=== PATIENT | male | born 2000 | race Caucasian/White ===

== ENCOUNTER 2020-12-13 08:51 | Inpatient (IN) | payer OTHER ==
[~2020-12-13] VITALS: Ht 185.4 cm; Wt 72.5 kg
--- NOTE | 2020-12-13 09:15 | NUR ---
and RN at bedside for assessments.
--- NOTE | 2020-12-13 09:20 | NUR ---
Repeat EKG being performed and pt placed on full bedside monitor. PCXR waiting outside room for film.
[2020-12-13] MEDS ORDERED: PLEASE ENTER ALLERGIES MC SCH (09:30)
[2020-12-13] MEDS ORDERED: ASPIRIN 81 MG TABLET CHEW PO ONE (09:30)
--- NOTE | 2020-12-13 09:30 | NUR ---
loom technician at bedside for draw.
[2020-12-13 09:31] LABS: BASOPHILS % (AUTO) 1 % (0-1); EOSINOPHILS % (AUTO) 2 % (1-7); LYMPHOCYTES % (AUTO) 17 % (22-44); MEAN CORPUSCULAR HEMOGLOBIN 31.7 pg (27.5-34.5); MEAN CORPUSCULAR HGB CONC 34.2 g/dL (33.2-36.2); MEAN PLATELET VOLUME 8.6 fL (7.4-10.4); MONOCYTES % (AUTO) 17 % (2-9); NEUTROPHILS % (AUTO) 63 % (42-75); PLATELET COUNT 161 x10^3/uL (130-400); RED BLOOD COUNT 5.54 x10^6/uL (4.38-5.82); RED CELL DISTRIBUTION WIDTH 13.2 % (9.4-14.8)
[2020-12-13] MEDS ORDERED: ASPIRIN 81 MG TABLET CHEW ONE (09:34)
--- NOTE | 2020-12-13 09:38 | NUR ---
Pt given baby ASA as ordered with small amount of water. Call light in reach and pt watching TV for diversion.
[2020-12-13 09:45] LABS: ALANINE AMINOTRANSFERASE 42 U/L (12-78); ALBUMIN 4.3 g/dL (3.4-5.0); ANION GAP 7 mmol/L (5-15); CHLORIDE 102 mmol/L (98-107); CREATININE 0.95 mg/dL (0.7-1.3)
[2020-12-13 09:47] LABS: MD SCAN
[2020-12-13 09:49] LABS: ALKALINE PHOSPHATASE 61 U/L (45-117); BILIRUBIN,TOTAL 1.1 mg/dL (0.2-1.0)
--- NOTE | 2020-12-13 10:28 | NUR ---
Cadiologist at bedside for exam. Task RN preparing to start IV and do rapid Covid swab as ordered.
[2020-12-13] MEDS ORDERED: SODIUM CHLORIDE FLUSH 10ML SYR IVF ONE (10:30)
[2020-12-13] MEDS ORDERED: MORPHINE SULFATE 4 MG/ML, 1ML IVPush ONE (10:30)
--- NOTE | 2020-12-13 10:50 | NUR ---
TASK RN: PIV STARTED, VS UPDATED. COVID SWAB OBTAINED AND WALKED TO LAB.
[2020-12-13] MEDS ORDERED: ATORVASTATIN 80 MG TABLET ONE (11:17)
[2020-12-13] MEDS ORDERED: HEPARIN 5,000 UNITS/ML, 1ML ONE ×2 (11:17→11:32)
[2020-12-13] MEDS ORDERED: HEPARIN 25,000 UNITS/250ML PMX 250 ML ONE (11:18)
--- NOTE | 2020-12-13 11:35 | NUR ---
HEPARIN PULLED FOR BOLUS AND START OF GTT BUT NOT YET CONFIRMED BY PHARMACY SO UNABLE TO SCAN/START MEDICATION. SECOND RN AT BEDSIDE TO WITNESS START CONFIRMS THAT PHARMACY HAS NOT YET CONFIRMED ORDERS TO BE ABLE TO START NOW. HOSPITALIST AT BEDSIDE FOR EXAM NOW.
--- NOTE | 2020-12-13 11:42 | NUR ---
Report called to KRYSTIN Villasenor working with KRYSTIN Henderson and room not yet cleaned. Jacklyn asked to call ER throughput RN as soon as bed is ready for transfer. Hospitalist exam still in progress. Pharmacy to be called about Heparin gtt now and UA sample obtained and sent.
--- NOTE | 2020-12-13 12:13 | NUR ---
Heparin bolus given and gtt started via pump. Confirmed with second RN. Awaiting transport to floor now.
[2020-12-13 12:22] LABS: AMPHETAMINE SCREEN, URINE Negative (Negative); BARBITURATE SCREEN, URINE Negative (Negative); BENZODIAZEPINE SCREEN, URINE Negative (Negative); CANNABINOID SCREEN, URINE Positive (Negative); COCAINE SCREEN, URINE Negative (Negative); METHADONE SCREEN, URINE Negative (Negative); OPIATE SCREEN, URINE Negative (Negative)
[2020-12-13 12:30] LABS: HCT (SEDRATE) 52.3 % (39.2-51.8)
[2020-12-13] MEDS ORDERED: HEPARIN 25,000 UNITS/250ML PMX 250 ML IV PRN (12:30)
[2020-12-13] MEDS ORDERED: HEPARIN 5,000 UNITS/ML, 1ML IV PRN (12:30)
[2020-12-13] MEDS ORDERED: HEPARIN 5,000 UNITS/ML, 1ML IV ONE (12:30)
[2020-12-13] MEDS ORDERED: ONDANSETRON 2MG/ML, 2ML IVPush PRN (13:00)
[2020-12-13] MEDS ORDERED: VERAPAMIL 2.5 MG/ML, 2ML ONE (14:05)
[2020-12-13] MEDS ORDERED: MIDAZOLAM 1 MG/ML, 5ML ONE (14:05)
[2020-12-13] MEDS ORDERED: FENTANYL PF 100 MCG/2ML ONE (14:05)
[2020-12-13] MEDS ORDERED: HEPARIN 1,000 UNITS/ML, 10ML ONE (14:06)
[2020-12-13] MEDS ORDERED: LIDOCAINE-MPF 1%, 5ML ONE (14:06)
[2020-12-13] MEDS ORDERED: DIPHENHYDRAMINE 50 MG/ML, 1ML ONE (14:34)
[2020-12-13] MEDS: SODIUM CHLORIDE 0.9% 1,000 ML IV SCH ×3 (15:00→23:00)
[2020-12-13 15:22] VITALS: BP 98/64
[2020-12-13] MEDS ORDERED: INDOMETHACIN 25 MG CAPSULE PO PRN (17:00)
[2020-12-13] MEDS ORDERED: OMNIPAQUE 350 MG/ML, 100ML BOTTLE ONE (18:00)
[2020-12-13 20:08] VITALS: BP 107/71
[2020-12-13] MEDS ORDERED: ATORVASTATIN 80 MG TABLET PO SCH (21:00)
[2020-12-13] MEDS: COLCHICINE 0.6 MG CAPSULE PO SCH (22:02)
[2020-12-14 01:23] VITALS: BP 123/78
[2020-12-14 05:04] LABS: BASOPHILS % (AUTO) 1 % (0-1); EOSINOPHILS % (AUTO) 4 % (1-7); LYMPHOCYTES % (AUTO) 34 % (22-44); MEAN CORPUSCULAR HEMOGLOBIN 31.8 pg (27.5-34.5); MEAN CORPUSCULAR HGB CONC 34.7 g/dL (33.2-36.2); MEAN PLATELET VOLUME 9.5 fL (7.4-10.4); MONOCYTES % (AUTO) 18 % (2-9); NEUTROPHILS % (AUTO) 44 % (42-75); PLATELET COUNT 156 x10^3/uL (130-400); RED CELL DISTRIBUTION WIDTH 13.3 % (9.4-14.8)
[2020-12-14 05:17] LABS: CHLORIDE 105 mmol/L (98-107)
[2020-12-14 05:20] LABS: MD NO
[2020-12-14 05:24] LABS: ALANINE AMINOTRANSFERASE 40 U/L (12-78); ALBUMIN 3.6 g/dL (3.4-5.0); ALKALINE PHOSPHATASE 60 U/L (45-117); ANION GAP 4 mmol/L (5-15); BILIRUBIN,TOTAL 0.7 mg/dL (0.2-1.0); CALCIUM 9.3 mg/dL (8.5-10.1); CREATININE 1.04 mg/dL (0.7-1.3); TOTAL PROTEIN 7.2 g/dL (6.4-8.2)
[2020-12-14] MEDS: SODIUM CHLORIDE 0.9% 1,000 ML IV SCH ×2 (06:39→07:50)
[2020-12-14 08:44] VITALS: BP 132/80
[2020-12-14] MEDS: COLCHICINE 0.6 MG CAPSULE PO SCH ×2 (09:08→21:31)
[2020-12-14] MEDS: INDOMETHACIN 25 MG CAPSULE PO SCH ×2 (11:18→21:31)
[2020-12-14 14:00] VITALS: BP 136/78
[2020-12-14 16:01] VITALS: BP 136/78
[2020-12-14 20:56] VITALS: BP 109/60
[2020-12-15 00:25] VITALS: BP 106/63
[2020-12-15 07:54] VITALS: BP 111/72
[2020-12-15] MEDS: COLCHICINE 0.6 MG CAPSULE PO SCH (09:10)
[2020-12-15] MEDS: INDOMETHACIN 25 MG CAPSULE PO SCH (09:10)
[2020-12-15] MEDS ORDERED: COLC0.6C3 PO (10:38)
[2020-12-15] MEDS ORDERED: INDO25CA22 PO (10:38)
== END 2020-12-15 13:13 | disposition home or self-care (01) | DRG 287 ==
LOC: ED 10:24 → EDIP 10:51 → 5SO 12:35 → DCLOUNGE 12-15 13:06
PROVIDERS: ADMIT Internal Medicine; ATTEND Internal Medicine
PROC: 4A023N7 Measurement of Cardiac Sampling and Pressure, Left Heart, Percutaneous Approach (ICD-10-PCS; principal; 2020-12-13)
PROC: B2111ZZ Fluoroscopy of Multiple Coronary Arteries using Low Osmolar Contrast (ICD-10-PCS; 2020-12-13)
PROC: B2151ZZ Fluoroscopy of Left Heart using Low Osmolar Contrast (ICD-10-PCS; 2020-12-13)
DX: I40.9 Acute myocarditis, unspecified (principal); I24.9 Acute ischemic heart disease, unspecified; F12.90 Cannabis use, unspecified, uncomplicated; I37.1 Nonrheumatic pulmonary valve insufficiency; M41.9 Scoliosis, unspecified; Z20.822 Contact with and (suspected) exposure to COVID-19; R94.31 Abnormal electrocardiogram [ECG] [EKG]
CPT/HCPCS: 36415; 71045; 71275; 80053; 80307; 84443; 84484; 85025; 85379; 85520; 85651; 86140; 87635; 93005; 93306; 93458; 96374; 96376; 99156; 99291; C1769; C1894; G0378; J1644; J2250; J3010; Q9967; J1200; J7030